=== PATIENT | female | born 1970 | race Caucasian/White ===

== ENCOUNTER 2017-06-12 17:06 | Emergency (ER) | payer BC ==
[2017-06-12 17:11] VITALS: RESP 16
[2017-06-12] MEDS ORDERED: SODIUM CHLORIDE 0.9% 1,000 ML IV ONE (17:45)
[2017-06-12 18:02] LABS: Basophils # (A) 0.1 k/uL (0-0.2); Basophils % (A) 1 %; CH 34.2; CHCM 35.4; Eosinophils # (A) 0.3 k/uL (0-0.7); Eosinophils % (A) 5 %; HCT 41.2 % (34.0-46.0); HDW 2.69; HGB 14.1 gm/dL (11.4-16.0); Luc # (Auto) 0.11; Luc % (Auto) 2; Lymphocytes % (A) 32 %; MCH 33.2 pg (25.0-35.0); MCHC 34.2 g/dL (31.0-37.0); MCV 97.3 fL (80.0-100.0); Mean Platelet Volume 8.4; Monocytes # (A) 0.4 k/uL (0-1.0); Monocytes % (A) 6 %; Neutrophils # (A) 3.3 k/uL (1.3-7.7); Neutrophils % (A) 54 %; RBC 4.24 m/uL (3.80-5.40); WBC 6.2 k/uL (3.8-10.6); WBC (Perox) 6.15
[2017-06-12 18:09] LABS: ALT 27 U/L (9-52); AST 18 U/L (14-36); Alkaline Phosphatase 69 U/L (38-126); Anion Gap 9 mmol/L; Blood Urea Nitrogen 10 mg/dL (7-17); Calcium 9.8 mg/dL (8.4-10.2); Carbon Dioxide 24 mmol/L (22-30); Chloride 108 mmol/L (98-107); Glucose 89 mg/dL (74-99); Non-African American GFR(MDRD) >60 (>60 ml/min/1.73 sqM); Potassium 3.9 mmol/L (3.5-5.1); Sodium 141 mmol/L (137-145); Total Bilirubin 0.6 mg/dL (0.2-1.3); Total Protein 6.9 g/dL (6.3-8.2)
--- NOTE | 2017-06-12 18:13 | XR ---
EXAMINATION TYPE: XR chest 2V DATE OF EXAM: 06/12/2017 COMPARISON: 02/20/2016 HISTORY: Dizziness and short of breath TECHNIQUE: Frontal and lateral views of the chest are obtained. FINDINGS: Heart and mediastinum are normal. Lungs are clear. Diaphragm is normal. There are chest le ads. Bony thorax appears normal. IMPRESSION: Normal chest. No change.
[2017-06-12 18:19] LABS: Creatine Kinase 40 U/L (30-135)
[2017-06-12 18:31] LABS: Creatine Kinase MB <0.2 ng/mL (0.0-2.4); Troponin I <0.012 ng/mL (0.000-0.034)
[2017-06-12 18:51] LABS: Partial Thromboplastin Time 21.7 sec (22.0-30.0)
[2017-06-12 19:32] LABS: Appearance,Urine Clear (Clear); Bilirubin,Urine Negative (Negative); Glucose,Urine (UA) Negative (Negative); Ketones,Urine Negative (Negative); Leukocyte Esterase,Urine Negative (Negative); Nitrite,Urine Negative (Negative); Protein,Urine Negative (Negative); Specific Gravity,Urine 1.003 (1.001-1.035); UA Billing (MACRO vs. MICRO) CHEM; Urobilinogen,Urine <2.0 mg/dL (<2.0)
--- NOTE | 2017-06-12 20:25 | ED ---
General Adult HPI - General Chief complaint: Chest Pain Stated complaint: CHEST PAIN, LEFT ARM PAIN, SOB, DIZZINESS Time Seen by Provider: 06/12/17 17:37 Source: patient, RN notes reviewed Mode of arrival: wheelchair Limitations: no limitations - History of Present Illness Initial comments: 46-year-old female with past medical history fibromyalgia presents with left upper extremity pain worse with movement and left anterior chest pain. Patient describes the pain as sharp, worse with movement of the left shoulder. She is concerned that this is heart pain. She also reports some palpitations. Denies fever or chills, denies cough. Does report some lightheadedness and nausea. Patient takes [place] and tramadol for her fibromyalgia. No other medications, no other known medical history. No vomiting or diarrhea - Related Data Home Medications Medication Instructions Recorded Confirmed traMADol HCl [Ultram] 25 mg PO SUFRSA PRN 11/25/15 06/12/17 HYDROcodone/APAP 5-325MG [[place] 0.5 tab PO SUFRSA PRN 06/12/17 06/12/17 5-325] Ibuprofen [Motrin] 800 mg PO DAILY 06/12/17 06/12/17 Menthol [Biofreeze] 1 applic TOPICAL DAILY PRN 06/12/17 06/12/17 Allergies Allergy/AdvReac Type Severity Reaction Status Date / Time procaine HCl [From Novocain] AdvReac Vomiting Verified 06/12/17 18:34 Review of Systems ROS Statement: Those systems with pertinent positive or pertinent negative responses have been documented in the HPI. ROS Other: All systems not noted in ROS Statement are negative. Past Medical History Past Medical History: Fibromyalgia Additional Past Medical History / Comment(s): CHRONIC CONSTIPATION, IBS History of Any Multi-Drug Resistant Organisms: None Reported Past Surgical History: Cholecystectomy, Hysterectomy Additional Past Surgical History / Comment(s): UTERINE ABLATION Past Anesthesia/Blood Transfusion Reactions: Motion Sickness Past Psychological History: Depression Smoking Status: Never smoker Past Alcohol Use History: None Reported Past Drug Use History: None Reported - Past Family History Mother Family Medical History: No Reported History General Exam Limitations: no limitations General appearance: alert, in no apparent distress Head exam: Present: atraumatic, normocephalic Eye exam: Present: normal appearance, PERRL ENT exam: Present: normal exam, mucous membranes moist Neck exam: Present: normal inspection, meningismus, full ROM Respiratory exam: Present: normal lung sounds bilaterally. Absent: respiratory distress, wheezes Cardiovascular Exam: Present: regular rate, normal rhythm GI/Abdominal exam: Present: soft. Absent: distended, tenderness Extremities exam: Present: normal inspection, normal capillary refill. Absent: pedal edema Neurological exam: Present: alert, oriented X3, CN II-XII intact. Absent: motor sensory deficit Psychiatric exam: Present: normal affect, normal mood Skin exam: Present: warm, dry. Absent: cyanosis, diaphoretic Course Vital Signs 06/12/17 17:08 Temperature 99.0 F Pulse Rate 95 Respiratory 16 Rate Blood Pressure 121/78 O2 Sat by Pulse 100 Oximetry - Reevaluation(s) Reevaluation #1: 06/12/17 20:54 On reevaluation, patient has no new complaints. Vital signs are stable EKG Findings - EKG Comments: EKG Findings:: EKG obtained at 1725 shows possible left posterior fascicular block, however there is a lead reversal, ventricular rate 80, AZ interval 136, castration 78, QTC 406, repeat EKG with normal lead placement shows a ventricular rate 82, AZ interval 120, QRS 82, QTC 432, normal sinus rhythm, no signs of ST segment elevation or depression, no T-wave abnormality Medical Decision Making - Medical Decision Making 46-year-old female presenting with left arm and chest pain. Patient has a history of fibromyalgia, states she has had pain in this extremity before. Patient has reproducible left superior lateral chest pain, her pain is atypical for cardiac disease. EKG is nonischemic, chest x-ray shows no acute findings, laboratory studies including CBC, CMP, cardiac enzymes and urinalysis is negative. Patient is offered observation for cardiology evaluation. Patient declines. She wants to follow up with her primary care physician. Given the negative workup patient will be discharged and allowed to follow up as an outpatient. Diagnosis: Left superior anterior chest pain, atypical chest pain - Lab Data Result diagrams: 06/12/17 17:20 06/12/17 17:20 Lab Results 06/12/17 06/12/17 06/12/17 Range/Units 17:20 17:20 17:20 WBC 6.2 (3.8-10.6) k/uL RBC 4.24 (3.80-5.40) m/uL Hgb 14.1 (11.4-16.0) gm/dL Hct 41.2 (34.0-46.0) % MCV 97.3 (80.0-100.0) fL MCH 33.2 (25.0-35.0) pg MCHC 34.2 (31.0-37.0) g/dL RDW 13.0 (11.5-15.5) % Plt Count 265 (150-450) k/uL Neutrophils % 54 % Lymphocytes % 32 % Monocytes % 6 % Eosinophils % 5 % Basophils % 1 % Neutrophils # 3.3 (1.3-7.7) k/uL Lymphocytes # 2.0 (1.0-4.8) k/uL Monocytes # 0.4 (0-1.0) k/uL Eosinophils # 0.3 (0-0.7) k/uL Basophils # 0.1 (0-0.2) k/uL PT (9.0-12.0) sec INR (<1.2) APTT (22.0-30.0) sec D-Dimer (<0.60) mg/L FEU Sodium 141 (137-145) mmol/L Potassium 3.9 (3.5-5.1) mmol/L Chloride 108 H (98-107) mmol/L Carbon Dioxide 24 (22-30) mmol/L Anion Gap 9 mmol/L BUN 10 (7-17) mg/dL Creatinine 0.66 (0.52-1.04) mg/dL Est GFR (MDRD) Af Amer >60 (>60 ml/min/1.73 sqM) Est GFR (MDRD) Non-Af >60 (>60 ml/min/1.73 sqM) Glucose 89 (74-99) mg/dL Calcium 9.8 (8.4-10.2) mg/dL Magnesium 2.0 (1.6-2.3) mg/dL Total Bilirubin 0.6 (0.2-1.3) mg/dL AST 18 (14-36) U/L ALT 27 (9-52) U/L Alkaline Phosphatase 69 (38-126) U/L Total Creatine Kinase 40 (30-135) U/L CK-MB (CK-2) <0.2 (0.0-2.4) ng/mL CK-MB (CK-2) Rel Index Troponin I <0.012 (0.000-0.034) ng/mL Total Protein 6.9 (6.3-8.2) g/dL Albumin 4.2 (3.5-5.0) g/dL Urine Color Urine Appearance (Clear) Urine pH (5.0-8.0) Ur Specific [place] (1.001-1.035) Urine Protein (Negative) Urine Glucose (UA) (Negative) Urine Ketones (Negative) Urine Blood (Negative) Urine Nitrite (Negative) Urine Bilirubin (Negative) Urine Urobilinogen (<2.0) mg/dL Ur Leukocyte Esterase (Negative) 06/12/17 06/12/17 Range/Units 17:20 18:50 WBC (3.8-10.6) k/uL RBC (3.80-5.40) m/uL Hgb (11.4-16.0) gm/dL Hct (34.0-46.0) % MCV (80.0-100.0) fL MCH (25.0-35.0) pg MCHC (31.0-37.0) g/dL RDW (11.5-15.5) % Plt Count (150-450) k/uL Neutrophils % % Lymphocytes % % Monocytes % % Eosinophils % % Basophils % % Neutrophils # (1.3-7.7) k/uL Lymphocytes # (1.0-4.8) k/uL Monocytes # (0-1.0) k/uL Eosinophils # (0-0.7) k/uL Basophils # (0-0.2) k/uL PT 10.0 (9.0-12.0) sec INR 1.0 (<1.2) APTT 21.7 L (22.0-30.0) sec D-Dimer 0.18 (<0.60) mg/L FEU Sodium (137-145) mmol/L Potassium (3.5-5.1) mmol/L Chloride (98-107) mmol/L Carbon Dioxide (22-30) mmol/L Anion Gap mmol/L BUN (7-17) mg/dL Creatinine (0.52-1.04) mg/dL Est GFR (MDRD) Af Amer (>60 ml/min/1.73 sqM) Est GFR (MDRD) Non-Af (>60 ml/min/1.73 sqM) Glucose (74-99) mg/dL Calcium (8.4-10.2) mg/dL Magnesium (1.6-2.3) mg/dL Total Bilirubin (0.2-1.3) mg/dL AST (14-36) U/L ALT (9-52) U/L Alkaline Phosphatase (38-126) U/L Total Creatine Kinase (30-135) U/L CK-MB (CK-2) (0.0-2.4) ng/mL CK-MB (CK-2) Rel Index Troponin I (0.000-0.034) ng/mL Total Protein (6.3-8.2) g/dL Albumin (3.5-5.0) g/dL Urine Color Colorless Urine Appearance Clear (Clear) Urine pH 7.0 (5.0-8.0) Ur Specific [place] 1.003 (1.001-1.035) Urine Protein Negative (Negative) Urine Glucose (UA) Negative (Negative) Urine Ketones Negative (Negative) Urine Blood Negative (Negative) Urine Nitrite Negative (Negative) Urine Bilirubin Negative (Negative) Urine Urobilinogen <2.0 (<2.0) mg/dL Ur Leukocyte Esterase Negative (Negative) Disposition Clinical Impression: Musculoskeletal arm pain, Chest pain Disposition: HOME SELF-CARE Condition: Good Instructions: Chest Pain (ED) Referrals: Cami Mitchell III, MD [Primary Care Provider] - 1-2 days Time of Disposition: 20:00
[2017-06-12 21:01] VITALS: BP 116/79; PULSE 79; TEMP 98.1
== END 2017-06-12 20:55 | disposition home or self-care (01) ==
LOC: EC 17:06
DX: R07.89 Other chest pain (principal); M79.602 Pain in left arm; R42 Dizziness and giddiness; M79.7 Fibromyalgia; Z88.4 Allergy status to anesthetic agent; Z79.1 Long term (current) use of non-steroidal anti-inflammatories (NSAID)
CPT/HCPCS: 36415; 71020; 80053; 81003; 82550; 82553; 83735; 84484; 85025; 85379; 85610; 85730; 93005; 96360; 96361; 99285

== ENCOUNTER → 2017-07-09 | Outpatient (CLI) | payer BC ==
--- NOTE | 2017-07-09 20:53 | MR ---
EXAMINATION TYPE: MR brain wo/w con DATE OF EXAM: 07/09/2017 COMPARISON: NONE HISTORY: Dizziness, loss of balance, blurred vision TECHNIQUE: Multiplanar, multisequence images of the brain and brainstem is performed without and with IV contras t, utilizing 7 mL intravenous Gadavist . FINDINGS: Diffusion weighted images demonstrate no evidence of a recent infarct or other diffusion ab normality. There is no extra-axial fluid collection or significant white matter signal abnormality. The ventricular system and cisternal spaces are normal in size and appearance. The brain volume is age appropriate. Midline structures demonstrate normal morphology. The craniocervical junction appears within normal limits. Post contrast images demonstrate no abnormal enhancement. Changes of mild chronic sinusitis noted. IMPRESSION: 1. No acute process.
== END | disposition home or self-care (01) ==
LOC: RADMRIMAIN 19:10
PROVIDERS: ATTEND Family Medicine
DX: R29.818 Other symptoms and signs involving the nervous system (principal)
CPT/HCPCS: 70553; A9581

== ENCOUNTER → 2018-02-15 | Outpatient (CLI) | payer BC ==
--- NOTE | 2018-02-15 14:30 | XR ---
Cervical spine HISTORY: Neck pain, M 55.2 5 views of the cervical spine, no comparisons Lateral extension of endplate disc complex at C4-5, C5-6 causes foraminal encroachment. There is spon dylosis present at C4-5 and C5-6 with associated loss of disc height C4-5, C5-6 and C6-7. Cervical ve rtebral bodies show preserved height and alignment. Mild loss of cervical lordosis could be due to mu scle spasm. IMPRESSION: Degenerative disc disease.
== END | disposition home or self-care (01) ==
LOC: RADXRMAIN 13:00
PROVIDERS: ATTEND Nurse Practitioner Family
DX: M50.321 Other cervical disc degeneration at C4-C5 level (principal)
CPT/HCPCS: 72050

== ENCOUNTER 2018-11-24 08:12 | Day surgery (SDC) | payer BC ==
[2018-11-18 15:22] VITALS: BMI 25.7
[~2018-11-24 08:12] MED LIST: DEXAMETHASONE SOD PHOSPHATE 10 MG/ML 1 ML VIAL IV ONE; LACTATED RINGERS 1,000 ML IV SCH; LIDOCAINE 1% 20 ML VIAL (10MG/ML) FOR IV START INTRADERMA PRN; ONDANSETRON 4 MG/2 ML VIAL IVP ONE; SCOPOLAMINE 1.5MG/72HR PATCH TRANSDERM ONE; ceFAZolin IN SWFI 2 GM/20 ML SYRINGE IVP ONE
[2018-11-24 09:07] LABS: Glucose,Whole Blood 92 mg/dL (75-99)
[2018-11-24] MEDS ORDERED: MIDAZOLAM 2 MG/2 ML VIAL IVP ONE (09:20)
[2018-11-24] MEDS ORDERED: SUCCINYLCHOLINE CHLORIDE 100 MG/5 ML SYR IV ONE (10:35)
[2018-11-24] MEDS ORDERED: PROPOFOL 10 MG/ML 20 ML VIAL IV ONE (10:35)
[2018-11-24] MEDS ORDERED: HYDROmorphone (PF) 1 MG/ML ONE (10:35)
[2018-11-24] MEDS ORDERED: KETAMINE 10 MG/ML 20 ML VIAL ONE (10:35)
[2018-11-24] MEDS ORDERED: ROPIVACAINE 5 MG/ML 30 ML VIAL ONE (10:35)
[2018-11-24] MEDS ORDERED: fentaNYL (PF) 50 MCG/ML 2 ML AMP ONE (10:35)
[2018-11-24] MEDS ORDERED: LIDOCAINE 1% INJ 10MG/ML (20 ML MDV) ONE (10:35)
[2018-11-24] MEDS ORDERED: LACTATED RINGERS 1,000 ML IV ONE ×2 (11:34)
--- NOTE | 2018-11-24 12:21 | P.OP ---
Date of Procedure: 11/24/18 Preoperative Diagnosis: 1. Right hallux valgus deformity with widened 1-2 intermetatarsal angle 2. Fibromyalgia Postoperative Diagnosis: Same Procedure(s) Performed: 1. Correction of hallux valgus with right modified Lapidus procedure 2. Correction of hallux valgus with right modified Patel procedure 3. Application of short leg splint by physician, right leg Anesthesia: magalis FULLER Surgeon: Edvin Fang Cut Off Saw Tender Metal #1: Troy Marquis Estimated Blood Loss (ml): 10 IV fluids (ml): 1,200 Pathology: none sent Condition: stable Disposition: PACU Indications for Procedure: The patient is a very pleasant 48-year-old female with a medical history significant for fibromyalgia who presented to my office after having failed greater than 6 months of nonsurgical treatment for a right hallux valgus deformity. She had tried shoewear modification, orthotics, bunion pads, and toe spacers all with diminishing relief. Since she had pain and significant deformity I think it was reasonable to proceed with surgery. We discussed different surgical options. My surgical recommendation is to her hallux valgus with a modified Lapidus procedure. We discussed potential risks and complications of surgery including but not limited to risk of anesthesia, superficial infection, deep infection, delayed wound healing, damage to local blood vessels or nerves, risk of nonunion of the fusion site, risk of malunion the fusion site, risk of under correction of the deformity, risk of overcorrection of the deformity resulting in a hallux varus, risk of recurrence , risk of symptomatically hardware, risk of chronic pain, risk of chronic swelling, DVT, PE, other medical complications, generalized to satisfaction with her surgical outcome, and possibly loss of life or limb. The patient voiced her understanding of this and provided her consent to go forward with surgery. She also acknowledges the role that her fibromyalgia place with exaggerated response to musculoskeletal pain. Description of Procedure: The patient was identified in preop holding and the correct right leg was marked with my initials. I reviewed the consent form with the patient and her mom. All of their questions were answered. A popliteal and saphenous nerve block was placed by anesthesia. The patient was then brought back to the operating room. She was positioned on the OR table where a general anesthetic and preoperative antibiotics were administered. A tourniquet was put the proximal aspect of the right leg. The right leg was then prepped and draped in standard sterile fashion. During surgery, was performed identifying the correct patient, operative extremity, and procedure. The patient's leg was then elevated, exsanguinated with an Esmarch bandage, and the tourniquet was inflated to 275 mmHg. Next I began by outlining a longitudinal incision just medial to the EHL tendon centered over the first TMT joint. Skin incision with a scalpel and dissection was carried down carefully to subcu tissues tissue tenotomy scissors. The EHL tendon sheath was incised and retracted laterally. The capsule the TMT joint was sharply elevated. Attention was then turned distally. Once under incision was made in the first webspace. Dissection was carried down carefully through subcutissue with tenotomy scissors. The lateral capsule of the first MTP joint and the patellar suspensory ligament were sharply released with a scalpel. I elevated the soft tissue proximally and distally down the metatarsal and phalanx. I then placed a varus force on the toe which nicely released the adhesions and corrected the hallux valgus deformity. A saw was then used to plane the base of the first metatarsal and an osteotome was used to release the plantar soft tissues to facilitate rotation. The K wire was then placed meters distal to the joint uses a joystick. Fluoroscopy was brought in and I verified that I could manually reduce the sesamoids and intermetatarsal angle with minimal pressure. A fulcrum was then placed in a pocket at the lateral base the first metatarsal. A stab incision was made over the midshaft of the second metatarsal. The intermetatarsal reduction guide was then placed with 1 liza over the lateral cortex of the second metatarsal and 1 liza over the medial cortex of the first metatarsal. The reduction clamp was gently tightened as an home based assistant used a joystick to correct rotation. The guide was tightened to finger tightness. This nicely reduced the hallux valgus deformity. X-rays were taken showing a reduced intermetatarsal angle and coverage of the sesamoids. A K wire was then a microsagittal saw was used to remove bone through the cutting guide off the base of the first metatarsal and medial cuneiform. The cutting guide was removed. The pins were left in place and a compressor-distractor was placed and gently distracted. The cut bone was removed. The joint was thoroughly irrigated. Fluoroscopy was brought in to verify that there was no debris that would prevent compression. A 2.0 mm drill was used to perforate the bone on both sides of the fusion. The compressor was then tightened with a fulcrum in place nicely compressing the joint and reducing the hallux valgus deformity. A cannulated 3.0 mm screws placed through the lateral base the first metatarsal into the medial cuneiform. I then placed a dorsal and medial plate at 90 and locking screws were placed. The wound was copiously irrigated. Final fluoroscopic images were taken showing reduction of the hallux valgus and intermetatarsal angle. Lateral x- ray showed compression of the joint with no elevation of the first ray. The wound was again copiously irrigated and closed in layers. A sterile dressing consisting of Betadine soaked Adaptic, 4 x 4, and web rolls applied. The drapes were taken down and a well-padded with the Henry splint was placed with the ankle at neutral. The patient was then awoken from her anesthetic transferred to a rcocoa and brought to PACU without the procedure well. Troy Marquis was required as a skilled home based assistant for patient positioning, retraction, exposure, placement of hardware, closure of wound, and application of splint. Plan: The patient is going to be discharged home as an outpatient. She is to be strictly nonweightbearing on her right leg. She'll follow-up in 2 weeks for splint removal nonweightbearing x-rays of the foot and transition to weightbearing in a boot.
[2018-11-24 12:57] VITALS: TEMP 97.8
[2018-11-24] MEDS: HYDROmorphone 0.5 MG/0.5 ML SYRINGE IVP PRN ×2 (13:06→13:22)
[2018-11-24 13:24] VITALS: RESP 16
--- NOTE | 2018-11-24 13:26 | FL ---
EXAMINATION TYPE: FL guidance operating room, XR foot limited RT DATE OF EXAM: 11/24/2018 CLINICAL HISTORY: Hallux valgus per order. TECHNIQUE: Fluoroscopy. Limited intraoperative views right foot. COMPARISON: None. FINDINGS: Fluoroscopic guidance was provided during bunion correction procedure performed by Dr. Hazel cancino. A total of 38 seconds of fluoroscopic time was utilized during the procedure and 3 spot intra operative images are acquired. Images acquired show advancement of surgical hardware with placement of volar fixating plate at base of first metatarsal with articulation with medial cuneiform. IMPRESSION: As Above.
[2018-11-24] MEDS ORDERED: ONDANSETRON 4 MG/2 ML VIAL IVP ONE (13:31)
[2018-11-24 14:18] VITALS: BP 118/70; PULSE 98
--- NOTE | 2018-11-27 08:56 | P.ONQ ---
Anesthesiology Proc Note - PNB - Peripheral Nerve Block Performed Right Popliteal Single Time Out Performed: Yes Procedure Start Time: Procedure Stop Time: Indication: Acute Post-Operative Pain, Requested by physician Sedation Type: Sedate with meaningful contact maintained Preparation: Sterile Prep Needle Size: 50mm (2") Needle Gauge: 21 Technique: Ultrasound Injectate: 0.5% Ropivacaine (see comment for volume) (ropi .5% 20cc) Blood Aspirated: No Pain Paresthesia on Injection Noted: No Resistance on Injection: Normal Events: Uneventful and Well Tolerated
== END 2018-11-24 14:30 | disposition home or self-care (01) ==
LOC: OR 08:12
PROVIDERS: ATTEND Orthopaedic Surgery
DX: M20.11 Hallux valgus (acquired), right foot (principal); M79.7 Fibromyalgia; K58.9 Irritable bowel syndrome, unspecified; M94.0 Chondrocostal junction syndrome [Tietze]; Z79.891 Long term (current) use of opiate analgesic; Z79.899 Other long term (current) drug therapy; Z79.82 Long term (current) use of aspirin; Z90.49 Acquired absence of other specified parts of digestive tract; Z90.710 Acquired absence of both cervix and uterus
CPT/HCPCS: 64450; 73620; 28297; C1713; J2250; J1100; J2405; J2001; J3010; J1170 ×2; J2795; J0330; J2704; J0690

== ENCOUNTER → 2019-05-17 | Outpatient (CLI) | payer BC ==
--- NOTE | 2019-05-17 14:17 | MM ---
Reason for exam: additional evaluation requested from prior study. Last mammogram was performed 3 years and 3 months ago. History: Patient has history of other cancer at age 48. Family history of breast cancer in aunt at age 40. Taking progesterone for 6 months. Taking other hormone for 6 months. Physical Findings: Nurse did not find any significant physical abnormalities on exam. MG 3D Diag Mammo W/Cad HERVE Bilateral CC and MLO view(s) were taken. Spot compression CC, spot compression MLO, and ML view(s) were taken of the left breast. Prior study comparison: February 08, 2016, bilateral MG screening mammo w CAD. The breast tissue is heterogeneously dense. This may lower the sensitivity of mammography. Left upper outer quadrant focal asymmetry 4-4.5cm from nipple. This improves but subtly persists on additional views. These results were verbally communicated with the patient and result sheet given to the patient on 05/17/19. ASSESSMENT: Incomplete: need additional imaging evaluation, BI-RAD 0 RECOMMENDATION: Ultrasound of the left breast.
--- NOTE | 2019-05-17 14:19 | USB ---
Reason for exam: additional evaluation requested from abnormal screening. History: Patient has history of other cancer at age 48. Family history of breast cancer in aunt at age 40. Taking progesterone for 6 months. Taking other hormone for 6 months. US Breast Limited LT Left limited breast ultrasound including focal area of concern, retroareolar and axilla demonstrates a 0.4 x 0.3 x 0.2cm lesion too small to characterize at 2 o'clock. Questionable small mass versus heterogenous dense fibroglandular tissue. These results were verbally communicated with the patient and result sheet given to the patient on 05/17/19. ASSESSMENT: Probably benign, BI-RAD 3 RECOMMENDATION: Follow-up diagnostic mammogram and ultrasound of the left breast in 6 months.
--- NOTE | 2019-05-18 08:37 | XR ---
EXAMINATION TYPE: XR sacrum coccyx DATE OF EXAM: 05/17/2019 COMPARISON: NONE HISTORY: History of dislocation 2006 with childbirth and sprain injury 2011 with pain for 5 years. TECHNIQUE: Supine and sitting frontal and lateral views of the sacrum and coccyx are obtained. Sittin g views are acquired as requested by ordering physician. FINDINGS: On sitting views of the coccyx is obscured by chair. Sacrum and coccyx show no significant displacement. Sacral alar R maintained. Sacroiliac joints are preserved. Overlying pelvic phleboliths are seen. IMPRESSION: As above.
== END | disposition home or self-care (01) ==
LOC: RADMAMWWP 12:55
PROVIDERS: ATTEND Family Medicine
DX: N60.11 Diffuse cystic mastopathy of right breast (principal); N60.12 Diffuse cystic mastopathy of left breast; R92.8 Other abnormal and inconclusive findings on diagnostic imaging of breast; I87.8 Other specified disorders of veins
CPT/HCPCS: 72220; 77062; 77066

== ENCOUNTER → 2019-12-09 | Outpatient (CLI) | payer BC ==
--- NOTE | 2019-12-09 10:43 | MM ---
Reason for exam: follow-up at short interval from prior study. Last mammogram was performed 7 months ago. History: Patient has history of other cancer at age 48. Family history of breast cancer in aunt at age 40. Taking progesterone for 6 months. Taking other hormone for 6 months. Physical Findings: Nurse Summary: nodule in the let brast at 1 o'clock (nurse TM). MG 3D Diag Mammo W/Cad LT CC, MLO, and XCCL view(s) were taken of the left breast. Prior study comparison: May 17, 2019, bilateral MG 3d diag mammo w/cad HERVE. February 08, 2016, bilateral MG screening mammo w CAD. The breast tissue is heterogeneously dense. This may lower the sensitivity of mammography. Left upper outer quadrant focal asymmetry appears as fibroglandular tissue. Possible sonograpic correlate to finding on the prior mammogram, therefore 6 month follow up recommended. These results were verbally communicated with the patient and result sheet given to the patient on 12/09/19. ASSESSMENT: Probably benign, BI-RAD 3 RECOMMENDATION: Ultrasound of the left breast.
--- NOTE | 2019-12-09 10:45 | USB ---
Reason for exam: follow-up at short interval from prior study. History: Patient has history of other cancer at age 48 and has history of bilateral breast cancer. Family history of breast cancer in aunt at age 40. Taking progesterone for 6 months. Taking other hormone for 6 months. US Breast Limited LT Left limited breast ultrasound including focal area of concern, retroareolar and axilla demonstrates no cystic or solid lesion seen. 2 x 3mm mass versus heterogenous tissue at 2 o'clock is stable from 05/17/19. These results were verbally communicated with the patient and result sheet given to the patient on 12/09/19. ASSESSMENT: Probably benign, BI-RAD 3 RECOMMENDATION: Follow-up diagnostic mammogram of both breasts in 6 months. Ultrasound of the left breast in 6 months.
== END | disposition home or self-care (01) ==
LOC: RADMAMWWP 08:18
PROVIDERS: ATTEND Family Medicine
DX: N60.19 Diffuse cystic mastopathy of unspecified breast (principal)
CPT/HCPCS: 77061; 77065

== ENCOUNTER → 2020-07-04 | Outpatient (CLI) | payer BC ==
--- NOTE | 2020-07-04 12:04 | MM ---
Reason for exam: follow-up at short interval from prior study. Last mammogram was performed 7 months ago. History: Patient has history of other cancer at age 48. Family history of breast cancer in aunt at age 40. Taking progesterone for 6 months. Taking other hormone for 6 months. Physical Findings: Nurse Summary: 1cm nodule in the left breast at 1 o'clock (nurse tamanna). MG 3D Diag Mammo W/Cad HERVE Bilateral CC and MLO view(s) were taken. Prior study comparison: December 09, 2019, left breast MG 3d diag mammo w/cad LT. May 17, 2019, bilateral MG 3d diag mammo w/cad HERVE. The breast tissue is heterogeneously dense. This may lower the sensitivity of mammography. Finding: There is a typically benign equal density (isodense), circumscribed lobulated mass located 9 cm from the nipple in the 1 o'clock upper outer quadrant, posterior position of the left breast may correspond to palpable abnormality. New finding since December 09, 2019 and May 17, 2019. These results were verbally communicated with the patient and result sheet given to the patient on 07/04/20. ASSESSMENT: Incomplete: need additional imaging evaluation, BI-RAD 0 RECOMMENDATION: Ultrasound of the left breast.
--- NOTE | 2020-07-04 12:08 | USB ---
Reason for exam: additional evaluation requested from abnormal screening. History: Patient has history of other cancer at age 48. Family history of breast cancer in aunt at age 40. Taking progesterone for 6 months. Taking other hormone for 6 months. US Breast Limited LT Left limited breast ultrasound including focal area of concern, retroareolar and axilla demonstrates no cystic or solid lesion seen. Nothing evident at BB or 1 o'clock posterior position (similar locations). These results were verbally communicated with the patient and result sheet given to the patient on 07/04/20. ASSESSMENT: Negative, BI-RAD 1 RECOMMENDATION: Surgical consultation of the left breast. (Regarding changing mammographic density 1 o'clock position. Consider stereotactic core biopsy.) Called Dr. Mitchell's office with mammographic findings and has scheduled an appointment for the patient for 07/19/20 at 10:[address] Monte. PRELIMINARY REPORT CALLED AND FAXED TO DR. MONTE ON 07/04/20.
== END | disposition home or self-care (01) ==
LOC: RADMAMWWP 10:23
PROVIDERS: ATTEND Family Medicine
DX: N60.11 Diffuse cystic mastopathy of right breast (principal); N60.12 Diffuse cystic mastopathy of left breast
CPT/HCPCS: 77062; 77066

== ENCOUNTER → 2020-07-05 | Outpatient (CLI) | payer BC ==
--- NOTE | 2020-07-05 14:32 | EST ---
EXERCISE STRESS AGE: 49 SEX: F HT: 64" WT: 150 lbs. PROTOCOL: Asim STAGE: 2 DURATION OF EXERCISE: 6:00 HEART RATE REST: 123 BLOOD PRESSURE REST: 148/95 MAXIMUM HEART RATE ACHIEVED: 156 MAXIMUM BLOOD PRESSURE: 154/80 85% MPHR: 146 100% MPHR: 172 METS: 7.3 INDICATIONS: Chest pressure CLINICAL INFORMATION: Baseline rhythm is sinus mechanism, rate of 123, normal axis, intervals, with nonspecific ST-T wave changes. Baseline blood pressure 148/95 mmHg. Patient exercised on Asim protocol for 6 minutes reaching a peak rate 156 mmHg which is equal to 90% maximum predicted heart rate. Peak blood pressure 154/80 mmHg. Test was terminated due to fatigue. There were no chest pains. Electrocardiograph monitoring revealed rare PVCs. There was no evidence of diagnostic ischemic ST deviation. CONCLUSION: 1. Decreased exercise tolerance with rare PVCs and baseline sinus tachycardia. 2. Normal electrocardiograph stress testing with no evidence of ischemia. MMODL / IJN: [id number] /
--- NOTE | 2020-07-05 18:19 | ECHOF ---
Referral Reason:R07.89 Other chest pain,R42 Dizziness and giddines MEASUREMENTS -------- HEIGHT: 162.6 cm WEIGHT: 68.0 kg BP: IVSd: 1.1 cm (0.6 - 1.1) LVIDd: 3.4 cm (3.9 - 5.3) LVPWd: 1.1 cm (0.6 - 1.1) IVSs: 1.4 cm LVIDs: 2.4 cm LVPWs: 1.6 cm LAESV Index (A-L): 11.97 ml/m Ao Diam: 3.2 cm (2.0 - 3.7) AV Cusp: 2.1 cm (1.5 - 2.6) LA Diam: 2.8 cm (2.7 - 3.8) MV EXCURSION: 13.970 mm (> 18.000) MV EF SLOPE: 75 mm/s (70 - 150) EPSS: 2.5 cm MV E Mal: 0.58 m/s MV DecT: 105 ms MV A Mal: 0.76 m/s MV E/A Ratio: 0.77 RAP: 5.00 mmHg RVSP: 21.70 mmHg FINDINGS -------- Sinus rhythm. This was a technically good study. The left ventricular size is normal. Left ventricular wall thickness is normal. Overall left vent ricular systolic function is normal with, an EF between 55 - 60 %. The diastolic filling pattern is normal for the age of the patient 8.91. The right ventricle is normal in size. Normal LA size by volume 22+/-6 ml/m2. The right atrial size is normal. Interatrial and interventricular septum intact. The aortic valve is trileaflet, and appears structurally normal. No aortic stenosis or regurgitation. The mitral valve is normal. There is trace mitral regurgitation. The tricuspid valve appears structurally normal. Trace tricuspid regurgitation present. Right joselyn tricular systolic pressure is normal at < 35 mmHg. There is no pulmonic regurgitation present. The aortic root size is normal. Normal inferior vena cava with normal inspiratory collapse consistent with estimated right atrial pre ssure of 5 mmHg. There is no pericardial effusion. CONCLUSIONS -------- 1. Left ventricular wall thickness is normal. 2. Overall left ventricular systolic function is normal with, an EF between 55 - 60 %. 3. The diastolic filling pattern is normal for the age of the patient 8.91 4. Normal LA size by volume 22+/-6 ml/m2. 5. The aortic valve is trileaflet, and appears structurally normal. No aortic stenosis or regurgitati on. 6. There is trace mitral regurgitation. 7. Trace tricuspid regurgitation present. [employer]: Jina Bender RDCS
== END | disposition home or self-care (01) ==
LOC: RADNMMAIN 10:47
PROVIDERS: ATTEND Family Medicine
DX: I49.3 Ventricular premature depolarization (principal)
CPT/HCPCS: 93017; 93306

== ENCOUNTER → 2020-08-08 | Day surgery (SDC) | payer BC ==
[2020-08-08 07:27] VITALS: BP 120/79; PULSE 90; RESP 16; TEMP 98.3
--- NOTE | 2020-08-08 13:34 | MM ---
Reason for exam: additional evaluation requested from abnormal screening. Last mammogram was performed 1 month ago. History: Patient has history of other cancer at age 48. Family history of breast cancer in aunt at age 40. Taking progesterone for 6 months. Taking other hormone for 6 months. MG 3D Follow Up No Charge LT Spot compression CC, spot compression MLO, LM, and CCRM view(s) were taken of the left breast. Prior study comparison: July 04, 2020, bilateral MG 3d diag mammo w/cad HERVE. December 09, 2019, left breast MG 3d diag mammo w/cad LT. The breast tissue is heterogeneously dense. This may lower the sensitivity of mammography. The area of concern culd not be localized for stereotactic biopsy, discusses with referring doctor. Additional images show the are of concern to be less well seen. ASSESSMENT: Probably benign, BI-RAD 3 RECOMMENDATION: Follow-up diagnostic mammogram of the left breast in 6 months.
--- NOTE | 2020-08-08 14:18 | MM ---
EXAMINATION TYPE: MG discontinued stereo core LT DATE OF EXAM: 08/08/2020 COMPARISON: 07/04/2020 CLINICAL HISTORY: Request for biopsy TECHNIQUE: Stereotactic guided core biopsy of left breast. FINDINGS: Patient was localized. The area of concern could not be identified definitively. Additional images of the breast were obtained. Case was discussed with referring physician. Due to the lack of ability to localize the finding biopsy could not be performed. IMPRESSION: Discontinued stereotactic core biopsy.
== END ==
LOC: RADMAMWWP 07:09
PROVIDERS: ATTEND Surgery
DX: R92.8 Other abnormal and inconclusive findings on diagnostic imaging of breast (principal); Z53.9 Procedure and treatment not carried out, unspecified reason; Z80.3 Family history of malignant neoplasm of breast; Z88.4 Allergy status to anesthetic agent; Z91.09 Other allergy status, other than to drugs and biological substances

== ENCOUNTER 2020-11-30 06:06 | Day surgery (SDC) | payer BC ==
[2020-11-27 12:18] VITALS: BMI 24.9
[2020-11-30] MEDS ORDERED: LACTATED RINGERS 1,000 ML IV SCH (06:31)
[2020-11-30] MEDS ORDERED: ONDANSETRON 4 MG/2 ML VIAL IVP ONE (06:31)
[2020-11-30] MEDS ORDERED: MIDAZOLAM 2 MG/2 ML VIAL IV PRN (06:31)
[2020-11-30] MEDS ORDERED: DEXAMETHASONE SOD PHOSPHATE 4 MG/ML 1 ML VIAL IV ONE (06:31)
[2020-11-30] MEDS ORDERED: SCOPOLAMINE 1.5MG/72HR PATCH TRANSDERM ONE (06:58)
[2020-11-30] MEDS ORDERED: HYDROmorphone 0.5 MG/0.5 ML SYRINGE IVP PRN (07:00)
[2020-11-30] MEDS ORDERED: KETAMINE 10 MG/ML 20 ML VIAL ONE (07:36)
[2020-11-30] MEDS ORDERED: PHENYLEPHRINE 10 MG/ML VIAL ONE (07:36)
[2020-11-30] MEDS ORDERED: PROPOFOL 10 MG/ML 20 ML VIAL IV ONE (07:36)
[2020-11-30] MEDS ORDERED: fentaNYL (PF) 50 MCG/ML 2 ML AMP ONE (07:36)
[2020-11-30] MEDS ORDERED: ePHEDrine SULFATE/0.9% NACL/PF 50 MG/5 ML SYRINGE IV ONE (07:36)
[2020-11-30] MEDS ORDERED: MIDAZOLAM 2 MG/2 ML VIAL ONE (07:36)
[2020-11-30] MEDS ORDERED: LIDOCAINE 1% INJ 10MG/ML (20 ML MDV) ONE (07:36)
[2020-11-30] MEDS ORDERED: BUPIVACAINE (PF) 0.25% 30 ML VIAL SQ ONE (08:08)
[2020-11-30] MEDS ORDERED: LACTATED RINGERS 1,000 ML IV ONE (08:39)
[2020-11-30 09:27] VITALS: TEMP 99.4
--- NOTE | 2020-11-30 09:28 | FL ---
EXAMINATION TYPE: FL guidance operating room, XR foot limited LT DATE OF EXAM: 11/30/2020 CLINICAL HISTORY: Modified Lapidus TECHNIQUE: Fluoroscopy. Intraoperative limited views left foot. COMPARISON: None. FINDINGS: Fluoroscopic guidance was provided during left foot surgical procedure performed by Dr. Jaun gamble. A total of 46 seconds of fluoroscopic time was utilized during the procedure and single spot in traoperative image is acquired. Single image acquired shows fixation hardware at the base of first me tatarsal extending to the medial cuneiform and overlying surgical hardware. IMPRESSION: As Above.
[2020-11-30 10:11] VITALS: RESP 16
[2020-11-30 10:53] VITALS: BP 119/71; PULSE 74
--- NOTE | 2020-12-06 19:52 | OP ---
OPERATIVE REPORT DATE OF SURGERY: 11/30/2020 PREOPERATIVE DIAGNOSIS: Hallux valgus, left foot. POSTOPERATIVE DIAGNOSIS: Hallux valgus, left foot. PROCEDURE: Lapidus bunionectomy, left foot. SURGEON: Sumit Bowser DPM ANESTHESIA: General with hemostasis left ankle tourniquet at 250 mmHg. ESTIMATED BLOOD LOSS: Minimal. MATERIALS: One lapiplasty straight plate, one lapiplasty U plate with associated screws. INJECTABLES: None. SPECIMENS: None. COMPLICATIONS: None. OPERATIVE PROCEDURE: The patient was brought to the operating room, placed on the table in supine position. Timeout was taken to confirm correct patient identifiers, correct site of surgery, and correct procedure. When the room was in agreement, the patient was placed under general anesthetic. A well-padded tourniquet was placed on the left ankle and then a local anesthetic injected into the left foot. The left foot was then prepped and draped in the usual manner. The left foot was exsanguinated, tourniquet inflated to 250 mmHg. Attention was directed over the dorsal aspect of the left foot, where a 6 cm incision was made centered over the first tarsometatarsal joint and medial to the extensor hallucis longus tendon. It was deepened down to the subcutaneous tissue, carefully to identify and avoid and retract any neurovascular structures and cauterize any bleeding vessels. Dissection was then continued down to the periosteum capsule. An incision was made through these tissues medial to the extensor tendon. Subperiosteal dissection was then performed medially and laterally to expose the first tarsometatarsal joint and the space between the base of the first metatarsal and intermediate cuneiform. Once that was completed, a sagittal saw was used to plane the joint surfaces to allow for better motion. A K-wire was inserted on the medial side of the base of the first metatarsal to act as a joystick for frontal plane rotation. There was free movement available. The cut guide was placed over the joint surface and aligned, and that was used as a reference point to elza an area for a small incision on the lateral side of the second metatarsal about 3 mm distal to the end of the cut guide. The incision was deepened bluntly. The reduction clamp was inserted. The intermetatarsal angle was closed and fluoroscopy was used to check the overall correction. However, it was noted that the sesamoid apparatus did not correct, so the clamp was removed. A small incision was made on the lateral aspect of the first metatarsophalangeal joint. Subcutaneous dissection was done bluntly down to the level of the capsule, at which point a lateral capsulotomy was performed and the lateral sesamoid collateral ligament resected. The clamp was replaced. The intermetatarsal angle was corrected again, and this time the sesamoids corrected normally. The fulcrum was then placed between the base of the first metatarsal and intermediate cuneiform. Further correction was performed while simultaneously correcting the frontal plane rotation with the inserted K-wire. Once that position was satisfactory, a pin was placed through the correction guide to fix the area in the correct position. The joint seeker was placed in the first tarsometatarsal joint and then the cut guide was placed over the joint seeker and then provisionally fixated in place. It was checked under fluoroscopy for alignment. Once the alignment was satisfactory, a third wire was placed through the cut guide to prevent any migration or rotation. The sagittal saw was inserted into the cut guide and the conjoining joint surfaces of the first tarsometatarsal joint were resected. The cut guide was removed. The distractor was placed over the pins, then the area was distracted. The bony fragments were all removed, making sure that there were no partial fragments left deep in the arthrodesis site. Once that was done, both surfaces were fenestrated with a 2-0 drill bit, leaving the bony fragments within the area to allow for bone graft material. Then once that was done, distractor was then changed to compression and the arthrodesis site was compressed, making sure that it did not gap laterally or plantarly, and this was checked under fluoroscopy that noted good bony contact without any significant gapping. A threaded olive wire was then placed across the arthrodesis site for temporary fixation. The U plate was then placed medially, and locking screws were placed through the U plate. The provisional fixation was removed and then changed to the medial side and reinserted to allow for room for the dorsal plate. The dorsal plate was provisionally fixated and checked under fluoroscopy to confirm proper positioning. Once that was achieved, locking screws were placed nearest the arthrodesis site. The provisional fixation was removed and the remaining holes were filled with locking screws. Final fluoroscopic imaging showed good bony contact at the arthrodesis site. There was full correction of the intermetatarsal angle. Hardware was in proper position. The sesamoids were corrected, and frontal plane rotation was also corrected. All temporary pins were removed at this point. The wound was thoroughly irrigated with antibiotic saline. Deep closure was done with 2 Vicryl, subcutaneous closure done with 4-0 Monocryl. Skin closure was done with 3-0 Stratafix in a running subcuticular manner. The small stab incisions were then closed with Monocryl. glue was applied over the large incision, allowed to dry, and then Steri-Strips were applied across the incisions. Non-adherent gauze and a bulky dry dressing were applied to the left foot. The tourniquet was released and capillary refill returned to all digits on the left foot. The patient was placed in a short fracture boot with the ankle in neutral position. Anesthesia was reversed and the patient was taken to Recovery with vital signs stable. HAJA / JYOTIN: [id number] /
== END 2020-11-30 11:06 | disposition home or self-care (01) ==
LOC: OR 06:06
PROVIDERS: ATTEND Podiatrist
DX: M20.12 Hallux valgus (acquired), left foot (principal); M20.22 Hallux rigidus, left foot; M19.072 Primary osteoarthritis, left ankle and foot; E21.3 Hyperparathyroidism, unspecified; E89.0 Postprocedural hypothyroidism; E83.52 Hypercalcemia; K58.9 Irritable bowel syndrome, unspecified; M79.7 Fibromyalgia; M94.0 Chondrocostal junction syndrome [Tietze]; M53.3 Sacrococcygeal disorders, not elsewhere classified; R63.5 Abnormal weight gain; Z83.3 Family history of diabetes mellitus; Z97.3 Presence of spectacles and contact lenses; Z98.890 Other specified postprocedural states; Z79.890 Hormone replacement therapy; Z88.4 Allergy status to anesthetic agent; Z79.899 Other long term (current) drug therapy
CPT/HCPCS: 73620; 28292; C1713; J2250; J1100; J2370; J0690; J2405; J2001; J3010; J2704

== ENCOUNTER 2023-05-06 22:16 | Emergency (ER) | payer BC, OTHER ==
[2023-05-06 23:01] VITALS: BP 128/77; PULSE 90; RESP 18; TEMP 98.4
[2023-05-06 23:58] LABS: Basophils # (A) 0.1 k/uL (0-0.2); Basophils % (A) 1 %; Eosinophils # (A) 0.2 k/uL (0-0.7); Eosinophils % (A) 2 %; HCT 40.7 % (34.0-46.0); HGB 14.1 gm/dL (11.4-16.0); Lymphocytes # (A) 2.3 k/uL (1.0-4.8); Lymphocytes % (A) 24 %; MCH 33.5 pg (25.0-35.0); MCHC 34.7 g/dL (31.0-37.0); MCV 96.5 fL (80.0-100.0); Mean Platelet Volume 8.4; Monocytes # (A) 0.7 k/uL (0-1.0); Monocytes % (A) 7 %; Neutrophils # (A) 6.2 k/uL (1.3-7.7); Neutrophils % (A) 65 %; Platelet Count 268 k/uL (150-450); RBC 4.22 m/uL (3.80-5.40); RDW 12.1 % (11.5-15.5); WBC 9.5 k/uL (3.8-10.6)
[2023-05-07 00:06] LABS: Partial Thromboplastin Time 22.6 sec (22.0-30.0); Prothrombin Time 10.5 sec (9.0-12.0)
[2023-05-07 00:12] LABS: ALT 15 U/L (4-34); AST 19 U/L (14-36); African American GFR (CKD) >90 (>60 ml/min/1.73 sqM); Albumin 4.2 g/dL (3.5-5.0); Alkaline Phosphatase 79 U/L (38-126); Anion Gap 8 mmol/L; Blood Urea Nitrogen 12 mg/dL (7-17); Calcium 8.9 mg/dL (8.4-10.2); Carbon Dioxide 25 mmol/L (22-30); Chloride 107 mmol/L (98-107); Glucose 82 mg/dL (74-99); Non-African American GFR(CKD) 83 (>60 ml/min/1.73 sqM); Potassium 3.7 mmol/L (3.5-5.1); Sodium 140 mmol/L (137-145); Total Bilirubin 0.8 mg/dL (0.2-1.3); Total Protein 6.8 g/dL (6.3-8.2)
== END 2023-05-07 01:30 | disposition left against medical advice (07) ==
LOC: EC 22:16
DX: Z53.21 Procedure and treatment not carried out due to patient leaving prior to being seen by health care provider (principal)
CPT/HCPCS: 36415; 80053; 84484; 85025; 85610; 85730; 93005; 99499

== ENCOUNTER → 2024-03-23 | Outpatient (CLI) | payer OTHER ==
--- NOTE | 2024-03-23 22:24 | MR ---
EXAMINATION TYPE: MR cspine/lspine wo con DATE OF EXAM: 03/23/2024 COMPARISON: MRI cervical and lumbar spine 2014 HISTORY: Neck pain and numbness down both arms, low back pain that radiates down both legs. TECHNIQUE: Multiplanar, multisequence imaging of the cervical and lumbar spine are performed without IV contrast. FINDINGS: C-SPINE: Sagittal images of the cervical spine show the craniocervical junction to remain within normal limits . The cervical and upper thoracic spinal cord remains normal in course, caliber, and signal. There is dextroconvex scoliotic curvature centered in the midthoracic spine and levoconvex scoliotic curvat ure centered in the lower cervical spine. The vertebral body heights remain normal. There is grade 1 retrolisthesis C4 on C5, C5 on C6, and C6 on C7 redemonstrated. There is mild to moderate disc spac e narrowing and spurring C4-C5 through C6-C7 levels redemonstrated. Heterogeneous endplate changes ar e seen. Axial images show the C2-C3 level to remain within normal limits. Axial images at the C3-C4 level now appear within normal limits. Axial images at C4-C5 level show right paracentral spur disc complex causing asymmetric [id number] ate right-sided neural foraminal narrowing on current study. Axial images at the C5-C6 level spondylolisthesis and show broad-based paracentral disc protrusion ef facing anterior thecal sac and causing [id number] bilateral neural foraminal narrowing more pro minent versus prior. Axial images at the C6-C7 level show spondylolisthesis and lobulated broad-based posterior disc protr usion effaces the anterior thecal sac and causing asymmetric [id number] left-sided neural coni inal narrowing more prominent versus prior. Axial images at C7-T1 level remain within normal limits. IMPRESSION: Multilevel spondylolisthesis and degenerative changes in the cervical spine as detailed above. L-SPINE: Sagittal images of the lumbar spine show vertebral body heights and alignment to remain satisfactory. Persistent disc desiccation at L5-S1 level with moderate disc space narrowing more prominent versus prior. There is new disc desiccation at L4-L5 level. The conus medullaris remains normal in position and signal ending inferior L1 level. Heterogeneous Modic type II endplate changes anteriorly L5-S1 le william on current study are new from Prior. Axial images show T12-L1 through L3-L4 levels to remain within normal limits. Axial images at L4-L5 level shows [id number] facet arthropathy and ligamentum flavum hypertroph y effacing the posterior lateral thecal sac. Axial images at L5-S1 level show mild/moderate facet arthropathy bilaterally. There is a broad-based right paracentral/foraminal disc protrusion minimally effacing the anterolateral thecal sac and causi ng mild right-sided anterior inferior neural foraminal narrowing. Left-sided neural foramen is patent . Paraspinal muscle bulk is maintained. IMPRESSION: Some multilevel degenerative change in the lower lumbar spine as detailed above slightly more prominent or progressed from 2015 MRI.
== END | disposition home or self-care (01) ==
LOC: RADMRIMAIN 20:00
PROVIDERS: ATTEND Family Medicine
DX: M47.816 Spondylosis without myelopathy or radiculopathy, lumbar region (principal); M47.812 Spondylosis without myelopathy or radiculopathy, cervical region
CPT/HCPCS: 72141; 72148